=== PATIENT | female | born 1970 | race Caucasian/White ===

== ENCOUNTER → 2016-06-05 | Day surgery (SDC) | payer BC ==
[~2016-06-05] MED LIST: ABILIFY10 MG PO; ANAFRANIL75 MG PO; BUSPIRONE HCL10 MG PO; LITHIUM CARBON300 M1 PO; PROBIOTIC1 EAC2 PO; PROZAC PO
--- NOTE | ~2016-06-05 | ECT ---
Unit #: [id number] #: [id number] Patient: SHERINE CASTELLANOS [id number] [address] [address] [id number] MR#: [id number] NAME: SHERINE CASTELLANOS ROOM: Age: 46 Sex: F Admission Date: 06/05/2016 : 1970 Discharge Date: Attending Physician: Chan Christian M.D. Primary Care Physician: Maddy Robbins M.D. ECT NOTE DATE OF TREATMENT 06/05/2016 TREATMENT NUMBER Maintenance #5 TREATMENT MODALITY Bilateral approach ANESTHESIA Glycopyrrolate: 0.2 mg Brevital: 120 mg Succinylcholine: 100 mg TREATMENT PARAMETERS Charge: 440 millicoulombs Pulse Width: 1.0 milliseconds Frequency: 50 Hertz Duration: 5.5 seconds Current: 800 milliamps TREATMENT DELIVERED Energy: 81.5 joules Impedance: 226 ohms Charge: 440 millicoulombs SEIZURE MEASURES OMS: 31 seconds EE seconds COMPLICATIONS None. SUMMARY The patient had a good seizure with her OMS and EEG measures. Depression has been a little shaky. She has not been on her Abilify because her insurance company is going to force her to pay too much for it, so she is currently trying to get her medication delivered from [facility] and that hasn't gotten here yet. She is taking her other medications as prescribed. Depression has been rather serious with psychomotor retardation, poor focus and concentration, poor sleep, loss of interest in activities, no suicidal ideation is noted. I will continue her maintenance ECT in the next three weeks unless we need to shorten her ECT Unit #: [id number] #: [id number] Patient: SHERINE CASTELLANOS schedule. We did change to a bilateral approach today and will just watch and see how she does with that for her maintenance ECT. DIFFERENTIAL DIAGNOSES AXIS I: F33.2. AXIS II: Deferred. AXIS III: Nothing acute. AXIS IV: AXIS V: Dictated by... Chan Christian M.D. ESTRELLITA/cordell TD: 06/06/2016 08:40 JOB #: [id number] ECT NOTE X Chan Christian MD <ELECTRONICALLY SIGNED> 11/26/16 1702 X ECT
== END | disposition home or self-care (01) ==
LOC: CSUR 07:59
DX: F33.2 Major depressive disorder, recurrent severe without psychotic features (principal); K58.9 Irritable bowel syndrome, unspecified; Z79.899 Other long term (current) drug therapy; Z87.898 Personal history of other specified conditions; Z98.890 Other specified postprocedural states
CPT/HCPCS: 90870; J0330; J1885

== ENCOUNTER 2016-06-07 05:14 | Inpatient (IN) | payer BC ==
--- NOTE | ~2016-06-07 | DS ---
Unit #: [id number] #: [id number] Patient: SHERINE CASTELLANOS [id number] [facility] [address] [place] [address] [id number] MR#: [id number] NAME: SHERINE CASTELLANOS ROOM: [facility] Age: 46 Sex: F Admission Date: 06/07/2016 : 1970 Discharge Date: 06/10/2016 Attending Physician: Otto Hsieh M.D. Primary Care Physician: Maddy Robbins M.D. DISCHARGE SUMMARY REASON FOR ADMISSION Suicidal ideation. DIAGNOSTIC STUDIES LABORATORY RESULTS: Unremarkable. HOSPITAL COURSE The patient was admitted to inpatient unit on 06/07/2016 and discharged on 06/10/2016. The patient was treated on the inpatient unit with group therapy, individual therapy, and medication management. The patient responded well with the above modalities of treatment. Subsequently, the patient was discharged with a plan to follow up in outpatient clinic. DISCHARGE MEDICATIONS Desyrel 50 mg at bedtime for sleep, Effexor XR 75 mg daily for mood symptom with a plan to gradually increase the dosage, lithium carbonate 300 mg b.i.d. for mood stabilization, BuSpar 30 mg b.i.d. for anxiety, Prozac 60 mg daily for depression, and Abilify 15 mg daily for mood symptom. DISCHARGE DIAGNOSES Psychiatric: 1. Major depressive disorder, recurrent, severe, F33.2. 2. Alcohol use disorder, moderate, F10.20. Secondary diagnosis: Deferred. Medical diagnosis: None. Stressors: Psychosocial stressors. DISCHARGE INSTRUCTIONS The patient is to follow up in outpatient clinic as per oncology social worker. CONDITION ON DISCHARGE The patient was pleasant and cooperative. Denied any psychotic symptom or any suicidal ideation. PROGNOSIS Guarded. DIET AND ACTIVITY As tolerated. Unit #: [id number] #: [id number] Patient: SHERINE CASTELLANOS Dictated by... Tova Mckinney/samantal TD: 06/10/2016 22:08 JOB #: [id number] DISCHARGE SUMMARY X Otto Hsieh MD X DISCHARGE SUMMARY
--- NOTE | ~2016-06-07 | PN ---
Unit #: [id number] #: [id number] Patient: ANITA CASTELLANOS [id number] [facility] [address] [place] [address] [id number] I MR#: [id number] NAME: ANITA CASTELLANOS ROOM: [facility] Age: 46 Sex: F Admission Date: 06/07/2016 : 1970 Attending Physician: Otto Hsieh M.D. Admitting Physician: Otto Hsieh M.D. Primary Care Physician: Tova Villarreal PROGRESS NOTES DATE OF SERVICE: 06/09/2016 DISCUSSION Ms. Anita Castellanos is a 46-year-old female, seen on 06/09/2016. The patient interviewed, chart reviewed, and obtained information from nursing staff. The patient was compliant and cooperative. Mood was sad and dysphoric, but reports mood is getting better. No side effects from medication. Able to participate in programing. Complete review of systems unremarkable. MENTAL STATUS EXAMINATION General appearance; the patient dressed casually, thin built. Attention span and concentration, fair. Oriented in time, place, and person. Mood and affect were sad, dysphoric, anxious. Speech, regular rate. Thought process, goal directed. The patient denied any thoughts of harming self or others or any psychotic symptom. Recent and remote memory, fair. Insight and judgment, fair to slightly impaired. DIAGNOSIS Psychiatric: Major depressive disorder, recurrent, severe. ASSESSMENT AND PLAN Advised to continue with current medication and therapeutic protocol. We will monitor response to medication and make further adjustment of medication with a plan to consider discharge next week and followup in outpatient program. Dictated by... Tova Mckinney/reji TD: 06/10/2016 20:01 JOB #: [id number] Unit #: [id number] #: [id number] Patient: ANITA CASTELLANOS MOHAMUD NOTES X Otto Hsieh MD PROGRESS NOTE
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
--- NOTE | ~2016-06-07 | PN ---
Unit #: [id number] #: [id number] Patient: ANITA CASTELLANOS [id number] [facility] [address] [place] [address] [id number] MR#: [id number] NAME: ANITA CASTELLANOS ROOM: [facility] Age: 46 Sex: F Admission Date: 06/07/2016 : 1970 Attending Physician: Otto Hsieh M.D. Admitting Physician: Otto Hsieh M.D. Primary Care Physician: Tova Villarreal PROGRESS NOTES DATE 06/08/2016 DISCUSSION Ms. Anita Castellanos is a 46-year-old female, seen on 06/08/2016. The patient interviewed, chart reviewed, and obtained information from the nursing staff. The patient tolerating medication fairly well. Compliant and cooperative. Mood sad and dysphoric, flat affect, isolative, guarded. REVIEW OF SYSTEMS Complete review of systems unremarkable. MENTAL STATUS EXAMINATION General appearance: Patient casually dressed. Attention span and concentration, fair. Oriented to place and person. Mood and affect, sad and dysphoric. Speech, monotone. Thought process, concrete. Association, the patient denied any thoughts of harming self or others but guarded. Recent and remote memory, poor. Insight and judgment, poor. DIAGNOSES 1. Major depressive disorder, recurrent. 2. Alcohol use disorder, severe. ASSESSMENT/PLAN Advised to continue with the current medication and if needed consider further adjustment of medication. The patient tolerating Effexor fairly well. The patient will be on Effexor 75 mg daily today. Dictated by... Tova Mckinney/cordell TD: 06/11/2016 07:58 JOB #: [id number] Unit #: [id number] #: [id number] Patient: ANITA CASTELLANOS PROGRESS NOTES X Otto Hsieh MD PROGRESS NOTE
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
== END 2016-06-10 15:30 | disposition home or self-care (01) | DRG 885 ==
LOC: P2L 05:14
DX: F33.2 Major depressive disorder, recurrent severe without psychotic features (principal); F10.20 Alcohol dependence, uncomplicated